=== PATIENT | female | born 1995 | race Two or more races ===

== ENCOUNTER 2018-12-10 19:30 | Inpatient (IN) | payer OTHER ==
[~2018-12-10] VITALS: Ht 154.9 cm; Wt 74.4 kg
[2018-12-10] MEDS ORDERED: SYNTHROID88 MCG PO (19:53)
[2018-12-10] MEDS ORDERED: PRENATAL TABLE1 EAC1 PO (19:53)
== END 2018-12-13 12:26 | disposition home or self-care (01) | DRG 833 ==
LOC: OB/GYN 19:30 → LDR 19:30 → OB/GYN 12-11 08:26
PROVIDERS: ADMIT Obstetrics & Gynecology
PROC: 4A1HXCZ Monitoring of Products of Conception, Cardiac Rate, External Approach (ICD-10-PCS; principal; 2018-12-10)
PROC: BY4FZZZ Ultrasonography of Third Trimester, Single Fetus (ICD-10-PCS; 2018-12-10)
DX: O47.03 False labor before 37 completed weeks of gestation, third trimester (principal); Z34.03 Encounter for supervision of normal first pregnancy, third trimester

== ENCOUNTER 2019-01-07 05:20 | Inpatient (IN) | payer OTHER ==
[~2019-01-07] VITALS: Ht 154.9 cm; Wt 77.1 kg
[~2019-01-07 05:20] MED LIST: PRENATAL TABLE1 EAC1 PO; SYNTHROID88 MCG PO
[2019-01-08] MEDS ORDERED: SYNTHROID88 MCG PO (09:43)
== END 2019-01-09 13:00 | disposition home or self-care (01) | DRG 807 ==
LOC: LDR 05:20 → SURG-SUITE 05:20
PROVIDERS: ADMIT Obstetrics & Gynecology
PROC: 10E0XZZ Delivery of Products of Conception, External Approach (ICD-10-PCS; principal; 2019-01-07)
PROC: 10907ZC Drainage of Amniotic Fluid, Therapeutic from Products of Conception, Via Natural or Artificial Opening (ICD-10-PCS; 2019-01-07)
PROC: 10907ZC Drainage of Amniotic Fluid, Therapeutic from Products of Conception, Via Natural or Artificial Opening (ICD-10-PCS; 2019-01-07)
PROC: 3E0P7VZ Introduction of Hormone into Female Reproductive, Via Natural or Artificial Opening (ICD-10-PCS; 2019-01-07)
PROC: 3E033VJ Introduction of Other Hormone into Peripheral Vein, Percutaneous Approach (ICD-10-PCS; 2019-01-07)
PROC: 4A1HXCZ Monitoring of Products of Conception, Cardiac Rate, External Approach (ICD-10-PCS; 2019-01-07)
DX: O80 Encounter for full-term uncomplicated delivery (principal); Z37.0 Single live birth; Z3A.39 39 weeks gestation of pregnancy

== ENCOUNTER 2025-08-18 07:24 | Inpatient (IN) | payer OTHER ==
[~2025-08-18] VITALS: Ht 154.9 cm; Wt 3.6 kg
[2025-08-18 07:41] VITALS: BP 106/72
[2025-08-18] MEDS ORDERED: PEPCID AC20 MG (08:56)
[2025-08-18] MEDS ORDERED: PRENATAL TABLE1 EAC4 (08:56)
[2025-08-18] MEDS ORDERED: CEFAZOLIN SODIUM 1,000 MG VIAL IV ONE (09:00)
[2025-08-18] MEDS ORDERED: RINGERS SOLUTION,LACTATED 1,000 ML IV SCH (09:00)
[2025-08-18 09:09] LABS: BASO % 0.3 % (0.1-1.2); EOS # 0.07 (0.04-0.54); EOS % 0.8 % (0.7-7.0); LYMPH # 1.99 (1.18-3.74); LYMPH % 22.4 % (19.3-53.1); MEAN PLATELET VOLUME 11.50 fl (9.4-12.4); MONO # 0.76 (0.24-0.82); MONO % 8.6 % (4.7-12.5); NEUT # 5.97 (1.56-6.13); NEUT % 67.3 % (34.0-71.1); RED CELL DISTRIBUTION WIDTH 15.1 % (11.6-14.4)
[2025-08-18 09:20] LABS: URINE APPEARANCE Clear; URINE BILIRRUBIN Negative (NEGATIVE); URINE BLOOD Negative; URINE COLOR Dark Yellow; URINE GLUCOSE Negative (NEGATIVE); URINE LEUKOCYTE Small; URINE NITRATE Negative; URINE PROTEIN 30 (NEGATIVE); URINE UROBILINOGEN 1.0 E.U./dl
[2025-08-18 09:24] LABS: URINE EPITHELIAL CELLS 172.1 uL (0.0-38.8); URINE RBC 2.8 uL (0.0-20.8); URINE WBC 168.3 uL (0.0-23.2)
[2025-08-18 09:28] LABS: INR 0.94
[2025-08-18 09:30] LABS: COVID-19 AG NEGATIVE (NEGATIVE)
[2025-08-18 09:47] LABS: ALT/SGPT 11.0 U/L (12-78); AST/SGOT 15.0 U/L (15-37); BILIRUBIN TOTAL 0.47 mg/dL (0.3-1.2); BUN CREA RATIO 19.0 (7.0-25.0); CREATININE SERUM 0.48 mg/dL (0.55-1.02); GFR 152.9; GLOBULINA 3.5 G/DL (2.4-3.5); GLUCOSE FASTING 72.0 mg/dL (65-100); OSMOLALITY SERUM 275.0 MOSM/KG (275-295)
[2025-08-18 10:05] LABS: URINE CAST 1.27 uL (0.0-1.40); URINE KETONE >=160 (NEGATIVE)
[2025-08-18] MEDS ORDERED: OXYTOCIN 2,000 ML IV SCH (11:46)
[2025-08-18] MEDS ORDERED: MORPHINE SULFATE 4 MG/ML VIAL IV SCH (12:00)
[2025-08-18] MEDS ORDERED: PROMETHAZINE HCL 25 MG/ML AMPUL IV SCH (12:00)
[2025-08-18 13:45] VITALS: BP 117/78; O2SAT 100
[2025-08-18 16:21] VITALS: BP 130/81
[2025-08-18] MEDS ORDERED: SENNOSIDES 1 TAB TABLET PO SCH (17:00)
[2025-08-18] MEDS ORDERED: KETOROLAC TROMETHAMINE 60 MG VIAL IM SCH (17:00)
[2025-08-19 01:50] VITALS: BP 104/65
[2025-08-19] MEDS ORDERED: SIMETHICONE 125 MG CAPSULE PO SCH (05:00)
[2025-08-19 06:24] LABS: BASO % 0.4 % (0.1-1.2); EOS # 0.12 (0.04-0.54); EOS % 1.3 % (0.7-7.0); LYMPH # 1.71 (1.18-3.74); LYMPH % 18.6 % (19.3-53.1); MEAN PLATELET VOLUME 11.70 fl (9.4-12.4); MONO # 0.87 (0.24-0.82); MONO % 9.5 % (4.7-12.5); NEUT # 6.40 (1.56-6.13); NEUT % 69.9 % (34.0-71.1); RED CELL DISTRIBUTION WIDTH 15.0 % (11.6-14.4)
[2025-08-19 07:57] LABS: BASO % 0.4 % (0.1-1.2); EOS # 0.10 (0.04-0.54); EOS % 1.1 % (0.7-7.0); LYMPH # 1.29 (1.18-3.74); LYMPH % 13.8 % (19.3-53.1); MEAN PLATELET VOLUME 11.60 fl (9.4-12.4); MONO # 0.70 (0.24-0.82); MONO % 7.5 % (4.7-12.5); NEUT # 7.18 (1.56-6.13); NEUT % 77.0 % (34.0-71.1); RED CELL DISTRIBUTION WIDTH 15.0 % (11.6-14.4)
[2025-08-19 08:00] VITALS: BP 116/76
[2025-08-19] MEDS ORDERED: SOD FERRIC GLUC COMPLX/SUCROSE 125 MG in 0.9 % SODIUM CHLORIDE 100 ML IV SCH (09:00)
[2025-08-19] MEDS ORDERED: PNV,CALCIUM 72/IRON/FOLIC ACID 1 TAB TABLET PO SCH (09:00)
[2025-08-19] MEDS ORDERED: ERYTHROMYCIN BASE OPHT 1GM EACH TUBE OP ONE (13:15)
[2025-08-19] MEDS ORDERED: OXYTOCIN 20 UNITS/1000ML RL PIGGYBAG IV ONE (13:15)
[2025-08-19 16:36] VITALS: BP 111/72
[2025-08-20 02:17] VITALS: BP 103/55
[2025-08-20 08:54] VITALS: BP 108/72
[2025-08-20] MEDS ORDERED: SENOKOT8.6 M1 PO (11:24)
[2025-08-20] MEDS ORDERED: SIMETHICONE125 M1 PO (11:24)
[2025-08-20] MEDS ORDERED: PRENATE ENHANC1 EACH PO (11:24)
[2025-08-20] MEDS ORDERED: IBUPROFEN800 MG PO (11:24)
== END 2025-08-20 11:28 | disposition home or self-care (01) | DRG 788 ==
LOC: LDR 07:24 → OB/GYN 07:24 → LDR 07:48 → O/R 10:02 → OB/GYN 12:24
PROVIDERS: ADMIT Obstetrics & Gynecology; ATTEND Obstetrics & Gynecology
PROC: 4A1HXCZ Monitoring of Products of Conception, Cardiac Rate, External Approach (ICD-10-PCS; 2025-08-18)
PROC: 10D00Z1 Extraction of Products of Conception, Low, Open Approach (ICD-10-PCS; principal; 2025-08-18 09:01)
DX: O82 Encounter for cesarean delivery without indication (principal); O99.824 Streptococcus B carrier state complicating childbirth; Z3A.39 39 weeks gestation of pregnancy; Z37.0 Single live birth